=== PATIENT | female | born 1955 | race Caucasian/White ===

== ENCOUNTER → 2020-06-08 08:30 | Outpatient (CLI) | payer BC, SELFPAY ==
--- NOTE | ~2020-06-08 | XR_ITS ---
EXAMINATION: XR knee RT min 4V DATE: 06/08/2020 09:12 INDICATION: Primary osteoarthritis of right knee. TECHNIQUE: 4 views of right knee were obtained. COMPARISON: None. FINDINGS: Bone alignment is normal. No fracture. There is mild tricompartmental osteoarthritis. No kn ee joint effusion. IMPRESSION: 1. Mild right knee osteoarthritis. Reviewed, dictated and finalized at location B.
== END ==
PROVIDERS: PCP Family Medicine; Visit Provider Nurse Practitioner
DX: M17.11 Unilateral primary osteoarthritis, right knee (principal)
CPT/HCPCS: 73564

== ENCOUNTER → 2021-02-25 10:02 | Outpatient (CLI) | payer BC, SELFPAY ==
--- NOTE | ~2021-02-25 | MR_ITS ---
EXAMINATION: MR shoulder RT wo con DATE: 02/25/2021 10:52 INDICATION: Chronic right shoulder pain TECHNIQUE: Magnetic resonance imaging (MRI) of the right shoulder was performed without intravenous c ontrast. Sequences included axial PD-weighted FS FSE, coronal oblique PD-weighted FS FSE, coronal obl ique T2-weighted FS FSE, sagittal PD-weighted FS FSE, and sagittal T1-weighted SE. COMPARISON: None. FINDINGS: Coracoacromial arch: The acromion undersurface is curved in morphology (type II). Small anterior and lateral subacromial s purs. The coracoacromial ligament is normal. Mild acromioclavicular osteoarthritis. Rotator cuff: There is attenuation of the supraspinatus and infraspinatus tendons resulting from a partial-thicknes s articular sided tear with up to 4 cm medial retraction of the torn articular sided fibers. The tear involves between one half and two thirds of the tendon thickness. There appears to be a small full-t hickness component measuring approximately 1 cm AP and 1.5 cm medial collateral of the distal conjoin ed portion of the supraspinatus and infraspinatus tendons however definitive identification of the ma rgins of the full-thickness component of the tear is difficult given the attenuation of the distal te ndons which limits the degree of accuracy of measurement. The teres minor tendon is normal. The artic ular sided tear appears to extend across the rotator cuff interval to involve the cephalad aspect of the lesser tuberosity footplate of the cephalad third of the subscapularis tendon. There is moderate fatty atrophy of the subscapularis tendon and mild atrophy of the supraspinatus and infraspinatus ten dons. Biceps tendon, glenoid labrum and glenohumeral cartilage: Complete tear of the long head biceps tendon and retracted below the level of the intertubercular rylie ove. There appears be a small portion of the tendon extending to the lesser tuberosity but not across the joint space likely representing an accessory head of the tendon. Glenoid labrum is normal. Mild partial thickness cartilage loss with smooth chondral surface and without degenerative subchondral ch anges along the cephalad half of the glenoid. Additional partial thickness cartilage loss with smooth mild chondral surface regularity along the cephalad aspect of the humeral head. Fluid: Physiologic amount of fluid in the glenohumeral joint and biceps tendon sheath. No loose osteochondra l bodies. Small amount of increased fluid signal in the subacromial/subdeltoid bursa which could be r elated to bursitis or extension of glenohumeral joint fluid into the bursa through the full-thickness rotator cuff tear. Bones: Normal marrow signal with no edema, fracture or abnormal marrow replacing process. Mild hypertrophic change along the lateral margin of the superior and middle facets of the greater tuberosity as well a s at the medial margin of the lesser tuberosity likely related to chronic rotator cuff disease. IMPRESSION: 1. Large moderate severity articular sided tear at the lesser and greater tuberosity footplate of the cephalad third of the subscapularis and entire supraspinatus and infraspinatus tendons with superimp osed small full-thickness tear at the conjoined portion of the supraspinatus and infraspinatus tendon s. 2. Complete tear and distal retraction of the long head biceps tendon with what appears to be residua l intact small accessory head which appears to remain attached at the lesser tuberosity. 3. Mild glenohumeral and acromioclavicular osteoarthritis. Reviewed, dictated and finalized at location A. IMPRESSION: 1. Large moderate severity articular sided tear at the lesser and greater tuber osity footplate of the cephalad third of the subscapularis and entire sup
== END ==
PROVIDERS: PCP Family Medicine; Visit Provider Orthopaedic Surgery
DX: M19.011 Primary osteoarthritis, right shoulder (principal)
CPT/HCPCS: 73221

== ENCOUNTER → 2021-03-24 15:42 | Outpatient (CLI) | payer BC, SELFPAY ==
--- NOTE | ~2021-03-24 | MM_ITS ---
EXAMINATION: MM screening sheryl BI w minna HISTORY: Screening mammogram TECHNIQUE: Craniocaudal and mediolateral oblique 3-D tomosynthesis images were obtained and synthetic 2-D images were generated. CAD analysis was submitted and interpreted. COMPARISON: 09/12/2019, 11/08/2017, 12/02/2015 bilateral digital screening mammogram examinations BREAST PARENCHYMAL COMPOSITION: There are scattered areas of fibroglandular density. FINDINGS: There is no evidence of suspicious mass, calcification, or architectural distortion to sugg est malignancy in either breast. There has been no suspicious interval change. IMPRESSION: 1. No mammographic evidence of malignancy. 2. Recommend routine screening mammography in one year. BI-RADS Category 1: Negative Reviewed, dictated and finalized at location A.
== END ==
PROVIDERS: PCP Family Medicine; Visit Provider Obstetrics & Gynecology Gynecology
DX: Z12.31 Encounter for screening mammogram for malignant neoplasm of breast (principal)
CPT/HCPCS: 77063; 77067

== ENCOUNTER → 2021-09-15 11:25 | Outpatient (CLI) | payer BC, SELFPAY ==
--- NOTE | ~2021-09-15 | CT_ITS ---
EXAMINATION: CT abdomen pelvis w con DATE: 09/15/2021 12:12 INDICATION: Epigastric abdominal pain. Nausea. Abnormal weight loss. TECHNIQUE: Computed tomography (CT) of the abdomen and pelvis was performed with 100 mL Omnipaque 350 intravenous contrast. Automated exposure control and iterative reconstruction technique were employe d. The dose-length product was 757.21 mGy-cm. COMPARISON: None. FINDINGS: The visualized portions of the lung bases demonstrate minimal atelectasis. No pleural effus ion. The heart size is normal. No pericardial effusion. The liver, gallbladder, spleen, pancreas, adr enal glands, and right kidney are normal. There is a 5 mm mass of fat in left kidney, consistent with an angiomyolipoma. There are no dilated loops of bowel. The appendix is normal. There are no patholo gically enlarged lymph nodes. There is no free intraperitoneal fluid. There is severe thoracic and jeremias mbar spondylosis. IMPRESSION: 1. No etiology for the patient's symptoms. Reviewed, dictated and finalized at location A. [employer]
[2021-09-15 11:57] LABS: Estimated Glomerular Filt Rate > 60
== END ==
PROVIDERS: PCP Family Medicine; Visit Provider Nurse Practitioner Family
DX: R10.9 Unspecified abdominal pain (principal); R11.0 Nausea; R63.4 Abnormal weight loss
CPT/HCPCS: 74177; Q9967

== ENCOUNTER → 2022-06-09 09:41 | Outpatient (CLI) | payer BC, SELFPAY ==
--- NOTE | ~2022-06-09 | MM_ITS ---
EXAMINATION: MM screening sheryl BI w minna HISTORY: Screening TECHNIQUE: Craniocaudal and mediolateral oblique 3-D tomosynthesis images were obtained and synthetic 2-D images were generated. CAD analysis was submitted and interpreted. COMPARISON: Comparison to multiple prior studies sequentially, with oldest reviewed study dated 04/03. BREAST PARENCHYMAL COMPOSITION: There are scattered areas of fibroglandular density. FINDINGS: There is focal asymmetry in the upper outer quadrant of the left breast, middle third. The right breast is stable without evidence for malignancy. IMPRESSION: 1. Focal left breast asymmetry, upper outer quadrant. 2. Additional mammographic views and possible breast ultrasound are recommended. BI-RADS Category 0: Incomplete: Needs additional imaging evaluation. Reviewed, dictated and finalized at location A. IMPRESSION: 1. Focal left breast asymmetry, upper outer quadrant. 2. Additional mammographic views and possible breast ultrasound are recommended . BI-RADS Category 0: Incomplete: Needs additional imaging evaluation.
== END ==
PROVIDERS: PCP Family Medicine; Visit Provider Obstetrics & Gynecology Gynecology
DX: Z12.31 Encounter for screening mammogram for malignant neoplasm of breast (principal); R92.8 Other abnormal and inconclusive findings on diagnostic imaging of breast
CPT/HCPCS: 77063; 77067

== ENCOUNTER → 2022-06-27 08:48 | Outpatient (CLI) | payer BC, SELFPAY ==
--- NOTE | ~2022-06-27 | MMUS_ITS ---
EXAMINATION: MM diagnostic sheryl LT w minna, US breast LT limited HISTORY: Focal upper outer quadrant left breast asymmetry TECHNIQUE: Additional full-field ML and spot ML, MLO and CC 3-D tomosynthesis images of the left obey st were performed and synthetic 2-D images were generated. Rolled medial and lateral lateral cranioca udal views. CAD analysis was submitted and interpreted. High resolution upper outer quadrant left tonja ast ultrasound was performed. COMPARISON: 06/09/2022 bilateral screening mammogram FINDINGS: MAMMOGRAPHIC FINDINGS: No suspicious mass or architectural distortion is evident. ULTRASOUND: 1:00 3 cm from nipple: Parallel circumscribed sonolucency measuring 2.6 x 1.7 x 3.0 mm, consistent wi th small cyst. No suspicious mass or shadowing is detected in the upper outer quadrant. IMPRESSION: 1. Benign findings; no evidence of malignancy 2. Routine annual mammographic screening is recommended BI-RADS Category 2: Benign finding(s). Reviewed, dictated and finalized at location A. IMPRESSION: 1. Benign findings; no evidence of malignancy 2. Routine annual mammographic screening is recommended BI-RADS Category 2: Benign finding(s).
== END ==
PROVIDERS: PCP Family Medicine; Visit Provider Obstetrics & Gynecology Gynecology
DX: R92.8 Other abnormal and inconclusive findings on diagnostic imaging of breast (principal)
CPT/HCPCS: 76642; 77061; 77065; G0279